=== PATIENT | male | born 1995 | race Caucasian/White ===

== ENCOUNTER 2021-03-14 11:22 | Outpatient (CLI) | payer BC | END 2021-03-14 11:23 | disposition home or self-care (01) | LOC: BICRAD 11:22 | PROVIDERS: ATTEND Chiropractor | DX: M54.6 Pain in thoracic spine (principal) | CPT/HCPCS: 72072 ==

== ENCOUNTER 2024-03-08 17:27 | Emergency (ER) | payer BC, OTHER | END 2024-03-08 18:36 | disposition home or self-care (01) | LOC: ERS 17:27 | DX: S63.92XA Sprain of unspecified part of left wrist and hand, initial encounter (principal); V29.99XA Rider (driver) (passenger) of other motorcycle injured in unspecified traffic accident, initial encounter | CPT/HCPCS: 99283 ==